=== PATIENT | male | born 2000 | race Caucasian/White ===

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

== ENCOUNTER 2021-06-11 13:47 | Emergency (ER) | payer BC ==
[2021-06-11] MEDS ORDERED: Ondansetron 4 MG/2 ML SDV IVPUSH ONE (15:12)
[2021-06-11] MEDS ORDERED: Sodium Chloride 0.9% 1,000 ML IV STA (15:12)
[2021-06-11] MEDS ORDERED: Sodium Chloride 0.9% 10 ML Syringe FLUSH PRN ×2 (15:12→16:24)
[2021-06-11] MEDS ORDERED: HYDROmorphone 1 MG/ML Syringe IVPUSH ONE (15:13)
[2021-06-11] MEDS ORDERED: Iopamidol 612 MG/ML 100 ML Bottle IVPUSH ONE (16:24)
[2021-06-11] MEDS ORDERED: Diatrizoate Meglumine/Diatrizoate Sodium 37% 120 ML Bottle PO ONE (16:24)
--- NOTE | 2021-06-11 17:21 | CT ---
CT abdomen and pelvis Technique: Multiple axial sections were obtained from above the dome of the diaphragm inferiorly through the pubic symphysis. Intravenous and oral contrast was utilized. Reconstructed coronal and sagittal images were obtained. Comparison: No previous abdomen or pelvic imaging is available. Findings: Spleen is enlarged at 15.5 cm in craniocaudal length. Visualized lung bases show nothing acute. Liver contains no focal abnormality. Adrenal glands show no nodule. Pancreas shows no abnormality. Gallbladder contains no calcified gallstones. Kidneys show symmetric contrast enhancement without hydronephrosis or mass. Abdominal aorta shows no aneurysm. No retroperitoneal adenopathy is seen. No pelvic mass or adenopathy is seen. Appendix is not definitely visualized. Bone window settings were reviewed which appear within normal limits for the patient's age. Impression: 1. Enlarged spleen with a craciocaudal length of 15.5 cm. 2. No additional abnormality is identified on CT study of the abdomen and pelvis. Diagnostic code #3
--- NOTE | 2021-06-11 17:59 | EDM.PDOC ---
ED HPI GENERAL MEDICAL PROBLEM - General Chief Complaint: Gastrointestinal Problem Stated Complaint: VOMITING Time Seen by Provider: 06/11/21 14:53 Source of Information: Reports: Patient History Limitations: Reports: No Limitations - History of Present Illness INITIAL COMMENTS - FREE TEXT/NARRATIVE: The patient presents with abdominal pain, nausea, vomiting and diarrhea. This started this morning at 10am. He just got home from [facility] yesterday. He did not drink any quileute or river water. He is not sure if he ate some bad food. He has burning abdominal pain. He had many episodes of diarrhea and vomiting. He still has his gallbladder and appendix. No one else he was with was sick. Onset: Sudden Duration: Hour(s): Location: Reports: Abdomen Quality: Reports: Sharp Severity: Severe Improves with: Reports: None Worsens with: Reports: None Associated Symptoms: Reports: Nausea/Vomiting. Denies: Chest Pain, Cough, Fever/Chills, Headaches, Shortness of Breath Treatments TEAM FOREMAN: Reports: Other (see below) Abdomen Pain Score (Numeric/FACES): 8 - Related Data Allergies Allergy/AdvReac Type Severity Reaction Status Date / Time No Known Allergies Allergy Verified 06/14/16 22:40 Home Meds: Home Meds Ondansetron [Zofran ODT] 4 mg PO Q6H PRN #20 tab.dis 06/11/21 [Rx] traMADol [Ultram] 50 - 100 mg PO Q6H PRN #6 tab 06/11/21 [Rx] Past Medical History Cardiovascular History: Reports: Syncope Respiratory History: Reports: Asthma Social & Family History - Tobacco Use Tobacco Use Status *Q: Current Every Day Tobacco User Years of Tobacco use: 2 Packs/Tins Daily: 1 - Caffeine Use Caffeine Use: Reports: Soda - Recreational Drug Use Recreational Drug Type: Reports: Marijuana/Hashish - Living Situation & Occupation Living situation: Reports: with Family Occupation: Student (Going into 10th grade) ED ROS GENERAL - Review of Systems Review Of Systems: See Below Constitutional: Reports: No Symptoms HEENT: Reports: No Symptoms Respiratory: Reports: No Symptoms Cardiovascular: Reports: No Symptoms Endocrine: Reports: No Symptoms GI/Abdominal: Reports: Abdominal Pain, Diarrhea, Nausea, Vomiting : Reports: No Symptoms Musculoskeletal: Reports: No Symptoms ED EXAM, GI/ABD - Physical Exam Exam: See Below Exam Limited By: No Limitations General Appearance: Alert, Mild Distress Ears: Normal External Exam Nose: Normal Inspection Head: Atraumatic, Normocephalic Neck: Normal Inspection Respiratory/Chest: No Respiratory Distress, Lungs Clear, Normal Breath Sounds Cardiovascular: Regular Rate, Rhythm, No Edema, No Murmur GI/Abdominal Exam: Soft, No Organomegaly, No Mass, Tender (Moderate generalized pain) Course - Vital Signs Last Recorded V/S: Last Vital Signs Temp 98.6 F 06/11/21 15:44 Pulse 98 06/11/21 15:44 Resp 16 06/11/21 15:44 BP 130/67 06/11/21 15:44 Pulse Ox 99 06/11/21 15:44 - Orders/Labs/Meds Orders: Active Orders 24 hr Category Date Time Status Peripheral IV Care [RC] . DIRECTED Care 06/11/21 15:12 Active C DIFFICILE PCR W/REFLEX [MOLEC] Stat Lab 06/11/21 17:51 Ordered OVA PARASITE EXAM Stat Lab 06/11/21 17:51 Ordered STOOL CULTURE/SHIGA TOXIN [MREF] Stat Lab 06/11/21 17:51 Ordered UA W/MICROSCOPIC [URIN] Stat Lab 06/11/21 15:00 Ordered Sodium Chloride 0.9% [Saline Flush] Med 06/11/21 15:12 Active 10 ml FLUSH ASDIRECTED PRN Sodium Chloride 0.9% [Saline Flush] Med 06/11/21 16:24 Active 10 ml FLUSH ONETIME PRN ED Antiemetic Medication Reflex [OM.PC] Stat Oth 06/11/21 15:12 Ordered Peripheral IV Insertion Adult [OM.PC] Stat Oth 06/11/21 15:12 Ordered Medication Orders Sodium Chloride (Sodium Chloride 0.9% 10 Ml Syringe) 10 ml FLUSH ASDIRECTED PRN PRN Reason: Keep Vein Open Last Admin: 06/11/21 15:00 Dose: 10 ml Documented by: ARIA Sodium Chloride (Sodium Chloride 0.9% 10 Ml Syringe) 10 ml FLUSH ONETIME PRN PRN Reason: Keep Vein Open Last Admin: 06/11/21 16:48 Dose: 10 ml Documented by: LULU Labs: Laboratory Tests 06/11/21 06/11/21 06/11/21 Range/Units 14:55 15:00 15:00 WBC 14.92 H (4.23-9.07) K/mm3 RBC 6.16 H (4.63-6.08) M/mm3 Hgb 18.0 H (13.7-17.5) gm/dl Hct 51.1 H (40.1-51.0) % MCV 83.0 (79.0-92.2) fl MCH 29.2 (25.7-32.2) pg MCHC 35.2 (32.2-35.5) g/dl RDW Std Deviation 39.6 (35.1-43.9) fL Plt Count 341 H (163-337) K/mm3 MPV 9.7 (9.4-12.3) fl Neut % (Auto) 88.4 H (34.0-67.9) % Lymph % (Auto) 2.4 L (21.8-53.1) % [place] % (Auto) 8.0 (5.3-12.2) % Eos % (Auto) 0.7 L (0.8-7.0) Baso % (Auto) 0.1 (0.1-1.2) % Neut # (Auto) 13.18 H (1.78-5.38) K/mm3 Lymph # (Auto) 0.36 L (1.32-3.57) K/mm3 [place] # (Auto) 1.20 H (0.30-0.82) K/mm3 Eos # (Auto) 0.10 (0.04-0.54) K/mm3 Baso # (Auto) 0.02 (0.01-0.08) K/mm3 Sodium 142 (136-145) mEq/L Potassium 4.0 (3.5-5.1) mEq/L Chloride 102 (98-107) mEq/L Carbon Dioxide 23 (21-32) mEq/L Anion Gap 21.0 H (5-15) BUN 19 H (7-18) mg/dL Creatinine 1.4 H (0.7-1.3) mg/dL Est Cr Clr Drug Dosing 67.55 mL/min Estimated GFR (MDRD) > 60 (>60) mL/min BUN/Creatinine Ratio 13.6 L (14-18) Glucose 170 H (70-99) mg/dL Calcium 10.1 (8.5-10.1) mg/dL Total Bilirubin 1.0 (0.2-1.0) mg/dL AST 26 (15-37) U/L ALT 39 (16-63) U/L Alkaline Phosphatase 108 (46-116) U/L Total Protein 9.9 H (6.4-8.2) g/dl Albumin 5.2 H (3.4-5.0) g/dl Globulin 4.7 gm/dL Albumin/Globulin Ratio 1.1 (1-2) Lipase 104 (73-393) U/L SARS-CoV-2 RNA (COOPER) Negative (NEGATIVE) Meds: Medications Generic Name Dose Route Start Last Admin Trade Name Freq PRN Reason Stop Dose Admin Sodium Chloride 10 ml 06/11/21 15:12 06/11/21 15:00 Sodium Chloride 0.9% 10 Ml Syringe FLUSH 10 ml ASDIRECTED PRN Administration Keep Vein Open Sodium Chloride 10 ml 06/11/21 16:24 06/11/21 16:48 Sodium Chloride 0.9% 10 Ml Syringe FLUSH 10 ml ONETIME PRN Administration Keep Vein Open Discontinued Medications Generic Name Dose Route Start Last Admin Trade Name Freq PRN Reason Stop Dose Admin Diatrizoate Meglum/Diatrizoate Sod 60 ml 06/11/21 16:24 06/11/21 16:48 Diatrizoate Meglumine/Diatrizoate Sodium 37% 120 Ml Bottle PO 06/11/21 16:25 60 ml ONETIME ONE Administration Hydromorphone HCl 1 mg 06/11/21 15:13 06/11/21 15:39 Hydromorphone 1 Mg/Ml Syringe IVPUSH 06/11/21 15:14 1 mg ONETIME ONE Administration Sodium Chloride 1,000 mls @ 1,000 mls/hr 06/11/21 15:12 06/11/21 15:41 Normal Saline IV 06/11/21 16:11 1,000 mls/hr .BOLUS STA Administration Iopamidol 100 ml 06/11/21 16:24 06/11/21 16:48 Iopamidol 612 Mg/Ml 100 Ml Bottle IVPUSH 06/11/21 16:25 100 ml ONETIME ONE Administration Ondansetron HCl 4 mg 06/11/21 15:12 06/11/21 15:37 Ondansetron 4 Mg/2 Ml Sdv IVPUSH 06/11/21 15:13 4 mg ONETIME ONE Administration - Re-Assessments/Exams Free Text/Narrative Re-Assessment/Exam: 06/11/21 17:56 I ordered an IV NS 1L bolus, zofran 4mg IV, dilaudid 1mg IV, labs, UA and a CT of his abdomen and pelvis. I will also get stool studies if he has to go. His WBC was elevated at 14.42. His Hgb was elevated at 18. His anion gap is elevated at 21. His creatinine is elevated at 1.4. His glucose is elevated at 170. His lipase is normal. He is COVID negative. His CT shows enlarged spleen with a craniocaudal length of 15.5cm. No additional abnormality is identified on CT study of the abdomen and pelvis. He feels much better and he wants to drink some fluid. He thinks he can give us a stool sample. I will analyze that. I will get him home with some zofran some something for cramping. Departure - Departure Time of Disposition: 18:00 Disposition: Home, Self-Care 01 Condition: Good Clinical Impression: Dehydration, Spleen enlarged Abdominal pain Qualifiers: Abdominal location: generalized Qualified Code(s): R10.84 - Generalized abdominal pain Nausea & vomiting Qualifiers: Vomiting type: unspecified Vomiting Intractability: non-intractable Qualified Code(s): R11.2 - Nausea with vomiting, unspecified Diarrhea Qualifiers: Diarrhea type: unspecified type Qualified Code(s): R19.7 - Diarrhea, unspecified - Discharge Information *PRESCRIPTION DRUG MONITORING PROGRAM REVIEWED*: Not Applicable *COPY OF PRESCRIPTION DRUG MONITORING REPORT IN PATIENT NOLAN: Not Applicable Prescriptions: traMADol [Ultram] 50 - 100 mg PO Q6H PRN #6 tab PRN Reason: Pain Ondansetron [Zofran ODT] 4 mg PO Q6H PRN #20 tab.dis PRN Reason: Nausea\vomiting Referrals: PCP,None [Primary Care Provider] - Fidencio Carranza MD [Physician] - 1 Week Additional Instructions: Drink plenty of fluids. Take the zofran every 6 hours as needed for nausea and vomiting. Take the ultram every 6 hours as needed for abdominal pain. Please return if you are worse. Sepsis Event Note (ED) - Focused Exam Vital Signs: Vital Signs Temp Pulse Resp BP Pulse Ox 06/11/21 15:44 98.6 F 98 16 130/67 99 06/11/21 14:46 97.8 F 96 20 135/109 H 99 - My Orders Last 24 Hours: My Active Orders 06/11/21 15:00 UA W/MICROSCOPIC [URIN] Stat 06/11/21 15:12 Peripheral IV Care [RC] . DIRECTED Sodium Chloride 0.9% [Saline Flush] 10 ml FLUSH ASDIRECTED PRN ED Antiemetic Medication Reflex [OM.PC] Stat Peripheral IV Insertion Adult [OM.PC] Stat 06/11/21 16:24 Sodium Chloride 0.9% [Saline Flush] 10 ml FLUSH ONETIME PRN 06/11/21 17:51 C DIFFICILE PCR W/REFLEX [MOLEC] Stat OVA PARASITE EXAM Stat STOOL CULTURE/SHIGA TOXIN [MREF] Stat - Assessment/Plan Last 24 Hours: My Active Orders 06/11/21 15:00 UA W/MICROSCOPIC [URIN] Stat 06/11/21 15:12 Peripheral IV Care [RC] . DIRECTED Sodium Chloride 0.9% [Saline Flush] 10 ml FLUSH ASDIRECTED PRN ED Antiemetic Medication Reflex [OM.PC] Stat Peripheral IV Insertion Adult [OM.PC] Stat 06/11/21 16:24 Sodium Chloride 0.9% [Saline Flush] 10 ml FLUSH ONETIME PRN 06/11/21 17:51 C DIFFICILE PCR W/REFLEX [MOLEC] Stat OVA PARASITE EXAM Stat STOOL CULTURE/SHIGA TOXIN [MREF] Stat
[2021-06-11 18:35] VITALS: BP 129/78; PULSE 80
== END 2021-06-11 18:20 | disposition home or self-care (01) ==
LOC: JD.ED 13:47
DX: R16.1 Splenomegaly, not elsewhere classified (principal); E86.0 Dehydration; R10.84 Generalized abdominal pain; R11.2 Nausea with vomiting, unspecified; R19.7 Diarrhea, unspecified; J45.909 Unspecified asthma, uncomplicated; Z72.0 Tobacco use; Z20.822 Contact with and (suspected) exposure to COVID-19
CPT/HCPCS: 36415; 74177; 80053; 83690; 85025; 87635; 96374; 96375; 99284; J1170; J2405; J7030; Q9963; Q9967; U0002